=== PATIENT | male | born 1995 | race Caucasian/White ===

== ENCOUNTER 2020-07-19 09:32 | Outpatient (REF) | payer OTHER, SELFPAY ==
[2020-07-19 10:03] LABS: COVID-19 Test Positive (Negative)
== END 2020-07-19 09:33 | disposition home or self-care (01) ==
LOC: HO.LAB 09:32
PROVIDERS: Visit Provider Internal Medicine
DX: Z20.822 Contact with and (suspected) exposure to COVID-19 (principal)
CPT/HCPCS: 36415; 87635; C9803